=== PATIENT | male | born 1945 | race Caucasian/White ===

== ENCOUNTER 2020-05-02 07:58 | Outpatient (CLI) | payer MEDICARE, BC ==
[2020-05-02 11:27] LABS: Bilirubin Neg (Negative); Blood, Urine Negative (Negative); Clarity Clear (Clear); Glucose, Urine (Dipstick) Normal (Negative); Ketone, Urine 5 mg/dL (Negative); Leukocyte Negative (Negative); Nitrite Negative (Negative); Protein, Urine (Dipstick) Negative (Neg-Trace); Specific Gravity, Urine 1.025 (1.002-1.036); Urobilinogen Normal mg/dL (Less than 2)
[2020-05-02 11:48] LABS: Mean Corpuscular HGB CONC 33.5 G/DL (32.0-36.0); Mean Corpuscular Hemoglobin 30.7 PG (27.0-33.0); Mean Corpuscular Volume 91.5 fl (80.0-100.0); Platelet Count 236 10x3/uL (130-400); RBC Distribution Width 11.7 % (11.5-14.5); Red Blood Cell (RBC) Count 4.24 10x6/uL (4.40-5.80); White Blood Cell (WBC) Count 7.7 10x3/uL (4.5-11.0)
[2020-05-02 11:52] LABS: Anion Gap 15 mmol/L (10-20); BUN (Urea Nitrogen) 19 mg/dL (8.4-25.7); Calc. Creatinine Clearance 0 mL/min (70-130); Calcium 9.3 mg/dL (7.8-10.44); Carbon Dioxide 25 mmol/L (23-31); Chloride 104 mmol/L (98-107); Glucose 179 mg/dL (83-110); Potassium 4.1 mmol/L (3.5-5.1); Sodium 140 mmol/L (136-145)
[2020-05-02 12:01] LABS: Bacteria/HPF None Seen HPF (None Seen); RBC/HPF 0-3 HPF (0-3); Squamous Epithelial 0-3 HPF (0-3); WBC/HPF 0-3 HPF (0-3)
[2020-05-03 00:15] LABS: SARS-CoV-2 PCR by NAA Not Detected (NotDetected)
--- NOTE | 2020-05-03 12:33 | EKG ---
Test Reason : Blood Pressure : / mmHG Vent. Rate : 078 BPM Atrial Rate : 078 BPM P-R Int : 132 ms QRS Dur : 142 ms QT Int : 414 ms P-R-T Axes : 042 095 051 degrees QTc Int : 471 ms Normal sinus rhythm Right bundle branch block Cannot rule out Inferior infarct , age undetermined Abnormal ECG No previous ECGs available Confirmed by TANIA ORTIZ ([id number]) on 05/03/2020 12:33:31 PM Referred By: VIRGEN Confirmed By:TANIA ORTIZ
== END 2020-05-02 07:59 | disposition home or self-care (01) ==
LOC: LABBT 07:58
PROVIDERS: ATTEND Urology
DX: Z01.818 Encounter for other preprocedural examination (principal); Z20.822 Contact with and (suspected) exposure to COVID-19; N20.1 Calculus of ureter
CPT/HCPCS: 80048; 81001; 85027; 87086; U0003; U0005; 87635; 93005; 93010

== ENCOUNTER 2020-05-07 06:06 | Day surgery (SDC) | payer MEDICARE, BC ==
[2020-05-03 13:17] VITALS: BMI 27.2
[2020-05-07] MEDS ORDERED: Fentanyl 100 MCG/2 ML VIAL ONE (06:41)
[2020-05-07] MEDS ORDERED: Levofloxacin 500 mg/D5W 100 ml Premix Bag ONE (06:52)
[2020-05-07] MEDS ORDERED: Iothalamate Meglumine 60% 50 ML VIAL FS ONE (07:31)
[2020-05-07] MEDS ORDERED: Ketorolac Tromethamine 30 MG/ML VIAL ONE (08:08)
[2020-05-07] MEDS ORDERED: Phenazopyridine HCl 100 MG TAB ONE (08:09)
--- NOTE | 2020-05-07 08:20 | OP ---
DATE OF PROCEDURE: 05/07/2020 PREOPERATIVE DIAGNOSIS: Right ureteral stone. POSTOPERATIVE DIAGNOSIS: Right ureteral stone. PROCEDURES PERFORMED: Right ureteroscopy, basket extraction, retrograde pyelogram and 4.8 x 26 double-J ureteral stent placement. ANESTHESIA: General. COMPLICATIONS: None. BLOOD LOSS: None. SPECIMEN: Right ureteral stone. DESCRIPTION OF PROCEDURE: After informed consent, the patient was taken to the operating room, transferred to the table on his own power. Anesthesia was established. A time-out was performed showing the correct patient, site, and procedure. Preoperative antibiotics were administered. He was prepped and draped in the lithotomy position. The semi-rigid ureteroscope was advanced through the urethra into the bladder, noting a large coapting lateral lobes of his prostate with no significant bladder neck obstruction. The right ureteral orifice was cannulated with a wire, noting the stone present at the distal right ureter in the ureteral orifice. The wire was passed into the renal pelvis under fluoroscopic guidance. The Nitinol basket was passed through the ureteroscope and used to remove the stone, which was passed off as specimen. The scope was then passed into the distal ureter and a retrograde pyelogram performed showing hydroureter and mild hydronephrosis with no further filling defects. The scope was then withdrawn and a 4.8 x 26 double-J ureteral stent with string was passed over the wire with a curl in the kidney and curl in the bladder. The bladder was then drained and the strings of the stent taped to the patient's penis. He was awoken from anesthesia, transferred back to his hospital bed, and taken to PACU in stable condition, where he will be discharged home upon recovery. Job ID: [id number]
[2020-05-07] MEDS ORDERED: PROPOFOL 200 MG/20 ML VIAL ONE (09:02)
[2020-05-07] MEDS ORDERED: Lidocaine 1% PF 5 ML VIAL ONE (09:02)
[2020-05-07] MEDS ORDERED: Glycopyrrolate 0.2 MG/ML 5 ML SYRINGE ONE (09:02)
[2020-05-07] MEDS ORDERED: Dexamethasone 20 MG/5 ML VIAL ONE (09:02)
[2020-05-07] MEDS ORDERED: Ondansetron PF 4 MG/2 ML Vial ONE (09:02)
--- NOTE | 2020-05-07 09:54 | RAD ---
RIGHT RETROGRADE PYELOGRAM: HISTORY: Right flank pain. COMPARISON: CT, 04/09/2021. FINDINGS: Single portable supine image is presented for interpretation. There is a right ureteral stent in hector ce. Contrast media is injected into the right ureter and extending into essentially nondilated right upper collecting system. The previously noted right ureteral calculus is not definitively evaluated or seen on this study. IMPRESSION: Right ureteral stent in place. POS: OFF
[2020-05-13 18:13] LABS: CA Oxalate Monohydrate 100 % (.); Color Tan (.); Stone Weight 38 mg (.)
== END 2020-05-07 09:30 | disposition home or self-care (01) ==
LOC: SDC 06:06
PROVIDERS: ATTEND Urology
PROC: 0TC68ZZ Extirpation of Matter from Right Ureter, Via Natural or Artificial Opening Endoscopic (ICD-10-PCS; principal; 2020-05-07)
PROC: 0T768DZ Dilation of Right Ureter with Intraluminal Device, Via Natural or Artificial Opening Endoscopic (ICD-10-PCS; 2020-05-07)
DX: N13.2 Hydronephrosis with renal and ureteral calculous obstruction (principal); E78.5 Hyperlipidemia, unspecified; I25.10 Atherosclerotic heart disease of native coronary artery without angina pectoris; I45.10 Unspecified right bundle-branch block; I10 Essential (primary) hypertension; E89.0 Postprocedural hypothyroidism; Z87.891 Personal history of nicotine dependence; Z79.02 Long term (current) use of antithrombotics/antiplatelets; Z79.82 Long term (current) use of aspirin; Z79.84 Long term (current) use of oral hypoglycemic drugs; Z79.899 Other long term (current) drug therapy
CPT/HCPCS: 74420; 82365; 88300; J1100; J1885; J1956; J2405; J2704; J3010

== ENCOUNTER 2021-06-03 11:41 | Outpatient (CLI) | payer MEDICARE, BC | END 2021-06-03 11:42 | disposition home or self-care (01) | LOC: SCSRAD 11:41 | PROVIDERS: ATTEND Urology | DX: Z09 Encounter for follow-up examination after completed treatment for conditions other than malignant neoplasm (principal); R10.11 Right upper quadrant pain; Z87.442 Personal history of urinary calculi | CPT/HCPCS: 74018 ==

== ENCOUNTER 2024-04-20 11:34 | Outpatient (CLI) | payer MEDICARE, BC | END 2024-04-20 11:35 | disposition home or self-care (01) | LOC: BICRAD 11:34 | PROVIDERS: ATTEND Urology | DX: N20.0 Calculus of kidney (principal) | CPT/HCPCS: 74018 ==

== ENCOUNTER 2024-06-02 13:25 | Outpatient (CLI) | payer MEDICARE, BC ==
[2024-06-02 14:55] LABS: #Basophils 0.03 10x3/uL (0.0-0.2); %Basophils 0.3 % (0.0-1.0); %Eosinophils 3.5 % (0.0-10.0); %Lymphocytes 20.8 % (21.0-51.0); %Monocytes 7.5 % (0.0-10.0); %Neutrophils 67.6 % (42.0-75.0); Hematocrit 36.7 % (42.0-52.0); Hemoglobin 12.7 g/dL (14.0-18.0); Mean Corpuscular HGB CONC 34.6 g/dL (32.0-36.0); Mean Corpuscular Hemoglobin 31.1 pg (27.0-31.0); Mean Platelet Volume 10.4 fL (7.4-10.4); Platelet Count 191 10x3/uL (130-400); RBC Distribution Width 12.2 % (11.5-14.5); Red Blood Cell (RBC) Count 4.08 mill/uL (4.70-6.10)
== END 2024-06-02 13:26 | disposition home or self-care (01) ==
LOC: LABBT 13:25
PROVIDERS: ATTEND Thoracic Surgery (Cardiothoracic Vascular Surgery)
DX: Z01.818 Encounter for other preprocedural examination (principal); I65.22 Occlusion and stenosis of left carotid artery
CPT/HCPCS: 85025; 93005; 93010